=== PATIENT | male | born 1995 | race African-American/Black ===

== ENCOUNTER 2019-08-06 21:27 | Emergency (ER) | payer OTHER, SELFPAY ==
[2019-08-06 21:37] VITALS: BP 121/67; PULSE 56; RESP 16; TEMP 36.2; O2SAT 98; BMI 27.4
--- NOTE | 2019-08-06 21:56 | ED_ITS ---
HPI - Wound/Laceration General Chief Complaint: Wound/Laceration Stated Complaint: laceration to middle finger right hand Time Seen by Provider: 08/06/19 21:44 Source: patient Mode of arrival: Ambulatory Limitations: no limitations History of Present Illness HPI narrative: Otherwise healthy 24-year-old gentleman presents with a laceration over the 2nd knuckle of his left hand. He hit the window broke the window and suffered laceration. He has full sensation full range of motion in the finger. Injury happened approximately 2 hours prior to arrival he is having minimal pain at this time. Related Data Previous Rx's Medication Instructions Recorded cephalexin [Keflex] 500 mg PO TID #15 cap 08/06/19 Allergies Allergy/AdvReac Type Severity Reaction Status Date / Time No Known Drug Allergies Allergy Verified 08/06/19 22:03 Review of Systems Review of Systems Narrative: Pertinent positive and negative findings as per HPI Unknown tetanus status Remainder of review of systems is otherwise unremarkable for Constitutional: Fevers, chills, weakness ENT: No sore throat, neck pain, ear pain CV: Chest pain, palpitations, dyspnea on exertion Respiratory: Cough, wheeze, dyspnea GI: Nausea, vomiting, diarrhea, change in bowel habits, black or bloody stools : Dysuria, hematuria, flank pain MS: Muscle weakness, numbness, joint swelling or warmth Patient History Social History Smoking Status: Current every day smoker Smoking Status: Current every day smoker tobacco type: cigarettes alcohol intake frequency: 3 or more drinks per day Alcohol type: beer and hard liquor Substance Use Type: marijuana Exam Narrative Exam Narrative: General: Alert appropriate in no acute distress Respiratory: Able to speak in full sentences, no obvious respiratory distress Skin: No obvious rashes, warm and dry Neurologic: Grossly intact no obvious asymmetries or abnormalities Psych, appropriate insight and affect, cooperative Right hand with full range of motion and neurovascularly intact. 2 cm laceration over the 2nd knuckle that does not appear to involve tendons or deeper structures. No tenderness or weakness in the finger with extension of the finger, full sensation to the entire finger Initial Vital Signs Initial Vital Signs: Vital Signs Temperature 97.2 F L 08/06/19 21:37 Pulse Rate 56 L 08/06/19 21:37 Respiratory Rate 16 08/06/19 21:37 Blood Pressure 121/67 08/06/19 21:37 Pulse Oximetry 98 08/06/19 21:37 Procedures Laceration Repair Laceration 1: Site: hand Side (If applicable): right Size (cm): 2 Description: linear Depth: simple, single layer Local Anesthetic: lidocaine 1% and with bicarb Amount of anesthesia used (mL): 2 Pre-repair: wound explored Skin layer closed with: vicryl Size (cm): 4-0 Number of sutures: 3 Technique: simple, interrupted and horizontal mattress Course Orders Ordered: Discontinued Medications Bacitracin (Bacitracin) 1 applic TOP NOW ONE Stop: 08/06/19 21:59 Last Admin: 08/06/19 22:06 Dose: 1 applic Documented by: MILIND Diphtheria/Tetanus/Acell Pertussis (Adacel) 0.5 ml IM .ONCE ONE Stop: 08/06/19 21:57 Last Admin: 08/06/19 22:05 Dose: 0.5 ml Documented by: MILIND Lidocaine/Sodium Bicarbonate (Buffered Lidocaine 10 Ml Syr) 10 ml INJ NOW ONE Stop: 08/06/19 21:57 Last Admin: 08/06/19 22:06 Dose: 10 ml Documented by: MILIND Vital Signs Vital signs: Vital Signs - 8 hr 08/06/19 21:37 Temperature 97.2 F L Pulse Rate 56 L Respiratory Rate 16 Blood Pressure 121/67 Pulse Oximetry 98 MDM - Wound/Laceration MDM Narrative Medical decision making narrative: Simple laceration right hand over the 2nd knuckle without any seeming involvement of tendon sheath or tendons. No bony injury or tenderness to the carpal bones and imaging was not felt to be required at this time. Simple laceration was repaired without complication recommended sutures removed in 10 days. Signs and symptoms of infection were reviewed prior to discharge. Safe for home discharge Discharge Plan Departure Patient Disposition: Home Clinical Impression: Laceration Discharge Date/Time: 08/06/19 22:50 Instructions: Tetanus, Diphtheria, and Pertussis Vaccine, DI for Laceration Rep air Activity Restrictions/Additional Instructions: Thank you for coming in today I put in 3 stitches to the seal the cut over your knuckle. In cleaning the wound it does not look like you have injured any of the deeper structures were tendons however hands can sometimes be a bit tricky. If you notice that you are having more pain in opening your hand completely more swelling at the area of the laceration or further up your hand I would encourage you to return to be re- evaluated. To prevent any infections I am going to put you on Keflex (and antibiotic) 500 mg 3 times a day for 5 days Using 400 mg of ibuprofen (2 [id number] pills) and 1 Tylenol every 6 hours can be very helpful in controlling pain. The sutures should come out on or about August 11. Please return to the emergency room and will be happy to remove them for you. In the meantime, it is okay to wash her hand but please do not soak it in water. Keep the area clean and dry and I would suggest keeping the sutures covered because they will catch on things and drive you crazy. I hope you heal quickly Prescriptions: New cephalexin [Keflex] 500 mg capsule 500 mg PO TID Qty: 15 RF: 0
[2019-08-06] MEDS: TET,DIPH,PERTUSS(ACELL),VAC/PF 0.5 ML SYRINGE IM (22:05)
[2019-08-06] MEDS: LIDO 1%/SOD BICARB 8.4% (10ML) 10 ML SYRINGE INJ (22:06)
[2019-08-06] MEDS: BACITRACIN OINT 0.9 GM PCKT 1 APPLIC TOP (22:06)
== END 2019-08-06 22:50 | disposition home or self-care (01) ==
PROVIDERS: Emergency Provider Emergency Medicine
DX: S61.411A Laceration without foreign body of right hand, initial encounter (principal); W25.XXXA Contact with sharp glass, initial encounter; Z23 Encounter for immunization
CPT/HCPCS: 12001; 90471; 99283; 99284; 90715

== ENCOUNTER 2025-01-23 15:57 | Emergency (ER) | payer OTHER, SELFPAY ==
[2025-01-23 16:01] VITALS: BP 141/93; PULSE 79; RESP 18; TEMP 36.9; O2SAT 96; BMI 33.0
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
[2025-01-23 18:04] VITALS: BP 130/97; PULSE 70; RESP 16; O2SAT 70
== END 2025-01-23 18:07 | disposition home or self-care (01) ==
PROVIDERS: Emergency Provider Emergency Medicine
DX: S06.0X0A Concussion without loss of consciousness, initial encounter (principal); V89.2XXA Person injured in unspecified motor-vehicle accident, traffic, initial encounter
CPT/HCPCS: 99283